=== PATIENT | male | born 1950 | race Hispanic/Latino ===

== ENCOUNTER 2021-11-03 17:37 | Inpatient (IN) | payer MEDICARE, OTHER ==
[2021-11-03 18:05] LABS: #Basophils 0.1 thou/uL (0.0-0.2); #Eosinphils 0.4 thou/uL (0.0-0.7); #Lymphocytes 2.4 thou/uL (1.20-3.40); #Monocytes 0.8 thou/uL (0.11-0.59); #Neutrophils 5.6 thou/uL (1.40-6.50); %Basophils 0.9 % (0.0-1.0); %Eosinophils 4.1 % (0.0-10.0); %Lymphocytes 25.7 % (21.0-51.0); %Monocytes 8.8 % (0.0-10.0); %Neutrophils 60.5 % (42.0-75.0); Hemoglobin 14.5 g/dL (14.0-18.0); Mean Corpuscular HGB CONC 32.3 g/dL (32.0-36.0); Mean Corpuscular Hemoglobin 30.5 pg (27.0-31.0); Mean Corpuscular Volume 94.2 fL (78.0-98.0); Mean Platelet Volume 7.2 fL (7.4-10.4); Platelet Count 253 thou/uL (130-400); RBC Distribution Width 14.5 % (11.5-14.5); Red Blood Cell (RBC) Count 4.76 mill/uL (4.70-6.10); White Blood Cell (WBC) Count 9.2 thou/uL (4.8-10.8)
[2021-11-03 18:27] LABS: ALT (SGPT) 24 U/L (8-55); AST (SGOT) 21 U/L (5-34); Albumin 4.2 g/dL (3.4-4.8); Alkaline Phosphatase 88 U/L (40-110); Anion Gap 13 mmol/L (10-20); BUN (Urea Nitrogen) 23 mg/dL (8.4-25.7); Bilirubin, Total 0.4 mg/dL (0.2-1.2); Calc. Creatinine Clearance 0 mL/min (70-130); Calcium 9.2 mg/dL (7.8-10.44); Carbon Dioxide 20 mmol/L (23-31); Chloride 107 mmol/L (98-107); Globulin 2.6 g/dL (2.4-3.5); Glucose 170 mg/dL (80-115); Lipase 46 U/L (8-78); Potassium 4.4 mmol/L (3.5-5.1); Protein, Total 6.8 g/dL (5.8-8.1); Sodium 136 mmol/L (136-145)
[2021-11-03 19:23] LABS: Bacteria/HPF None Seen HPF (None Seen); Bilirubin Negative (Negative); Blood, Urine Negative (Negative); Clarity Clear (Clear); Glucose, Urine (Dipstick) Greater than 1000 mg/dL (Negative); Ketone, Urine Negative (Negative); Leukocyte Negative Leu/uL (Negative); Nitrite Negative (Negative); Protein, Urine (Dipstick) 30 mg/dL (Neg-Trace); RBC/HPF 0-3 HPF (0-3); Specific Gravity, Urine 1.034 (1.002-1.036); Squamous Epithelial 0-3 HPF (0-3); Urobilinogen Normal mg/dL (Less than 2); WBC/HPF 0-3 HPF (0-3); pH, Urine 5.5 (5.0-9.0)
[2021-11-03 21:21] LABS: Troponin I 0.013 ng/mL (< 0.028)
[2021-11-03] MEDS ORDERED: Acetaminophen 325 MG TAB PO PRN (21:30)
[2021-11-03] MEDS ORDERED: Ondansetron PF 4 MG/2 ML Vial IVP PRN (21:30)
[2021-11-03] MEDS ORDERED: Ondansetron ODT 4 MG TAB SL PRN (21:30)
[2021-11-03 22:01] VITALS: BMI 29.6
[2021-11-03 23:57] LABS: Troponin I 0.012 ng/mL (< 0.028)
[2021-11-04] MEDS ORDERED: Senokot S 8.6-50 MG TAB PO PRN (11:03)
[2021-11-04] MEDS ORDERED: Ondansetron PF 4 MG/2 ML Vial IVP PRN (11:03)
[2021-11-04] MEDS ORDERED: Ondansetron ODT 4 MG TAB PO PRN (11:03)
[2021-11-04 12:07] LABS: SARS-CoV-2 PCR by NAA Not Detected (NotDetected)
[2021-11-04] MEDS ORDERED: HumaLOG 300 UNITS/3 ML VIAL SC PRN ×2 (15:21)
[2021-11-04] MEDS ORDERED: Dextrose 5% in Water 1,000 ML IV PRN (15:21)
[2021-11-04] MEDS ORDERED: Dextrose 50% Abboject 50 ML SYRINGE SLOW IVP PRN (15:21)
[2021-11-04] MEDS ORDERED: Non-Formulary Item 1 EACH (Dulaglutide [Trulicity] 1.5 MG/0.5 ML Pen.Injctr) SC SCH (15:30)
[2021-11-04] MEDS: metFORMIN XR 500 MG TAB PO SCH (16:30)
[2021-11-04] MEDS ORDERED: Empagliflozin 25 MG TAB PO SCH (21:00)
[2021-11-04] MEDS: Rivaroxaban 2.5 MG TAB PO SCH (21:36)
[2021-11-05 04:31] LABS: #Basophils 0.1 thou/uL (0.0-0.2); #Eosinphils 0.2 thou/uL (0.0-0.7); #Lymphocytes 1.3 thou/uL (1.20-3.40); #Monocytes 0.6 thou/uL (0.11-0.59); #Neutrophils 3.6 thou/uL (1.40-6.50); %Eosinophils 3.9 % (0.0-10.0); %Monocytes 9.4 % (0.0-10.0); %Neutrophils 62.6 % (42.0-75.0); Hemoglobin 14.1 g/dL (14.0-18.0); Mean Corpuscular HGB CONC 32.1 g/dL (32.0-36.0); Mean Corpuscular Hemoglobin 30.1 pg (27.0-31.0); Mean Corpuscular Volume 93.8 fL (78.0-98.0); Mean Platelet Volume 7.2 fL (7.4-10.4); Platelet Count 213 thou/uL (130-400); RBC Distribution Width 14.2 % (11.5-14.5); Red Blood Cell (RBC) Count 4.67 mill/uL (4.70-6.10); White Blood Cell (WBC) Count 5.8 thou/uL (4.8-10.8)
[2021-11-05 04:51] LABS: Anion Gap 13 mmol/L (10-20); BUN (Urea Nitrogen) 17 mg/dL (8.4-25.7); Calc. Creatinine Clearance 95 mL/min (70-130); Calcium 9.2 mg/dL (7.8-10.44); Carbon Dioxide 21 mmol/L (23-31); Chloride 109 mmol/L (98-107); Glucose 104 mg/dL (80-115); Potassium 3.8 mmol/L (3.5-5.1); Sodium 139 mmol/L (136-145)
[2021-11-05] MEDS ORDERED: Levothyroxine 150 MCG TAB PO SCH (06:00)
[2021-11-05] MEDS: metFORMIN XR 500 MG TAB PO SCH (08:50)
[2021-11-05] MEDS: Rivaroxaban 2.5 MG TAB PO SCH (08:50)
[2021-11-05] MEDS ORDERED: Allopurinol 300 MG TAB PO SCH (09:00)
[2021-11-05] MEDS ORDERED: Clopidogrel Bisulfate 75 MG TAB PO SCH (09:00)
[2021-11-05 13:33] VITALS: BP 140/88; TEMP 98.2
[2021-11-05] MEDS ORDERED: Atorvastatin Calcium 40 MG TAB PO SCH (21:00)
== END 2021-11-05 12:40 | disposition left against medical advice (07) | DRG 310 ==
LOC: ERS 17:37 → 2NO 19:50
PROVIDERS: ADMIT Student in an Organized Health Care Education/Training Program; ATTEND Emergency Medicine
DX: R00.1 Bradycardia, unspecified (principal); Z20.822 Contact with and (suspected) exposure to COVID-19; E11.51 Type 2 diabetes mellitus with diabetic peripheral angiopathy without gangrene; E03.9 Hypothyroidism, unspecified; M10.9 Gout, unspecified; I10 Essential (primary) hypertension; Z96.0 Presence of urogenital implants; I95.9 Hypotension, unspecified; I08.3 Combined rheumatic disorders of mitral, aortic and tricuspid valves; E78.00 Pure hypercholesterolemia, unspecified; Z95.828 Presence of other vascular implants and grafts; Z79.899 Other long term (current) drug therapy; Z79.890 Hormone replacement therapy; Z79.84 Long term (current) use of oral hypoglycemic drugs; Z79.02 Long term (current) use of antithrombotics/antiplatelets; Z79.01 Long term (current) use of anticoagulants; Z90.49 Acquired absence of other specified parts of digestive tract; Z98.890 Other specified postprocedural states; Z83.6 Family history of other diseases of the respiratory system; Z83.3 Family history of diabetes mellitus; Z80.0 Family history of malignant neoplasm of digestive organs
CPT/HCPCS: 36415; 36416; 71045; 80048; 80053; 81003; 81015; 83690; 83880; 84484; 85025; 93005; 93306; U0003; U0005